=== PATIENT | female | born 1995 | race African-American/Black ===

== ENCOUNTER 2020-10-24 19:18 | Emergency (ER) | payer OTHER ==
[~2020-10-24] VITALS: Ht 162.6 cm; Wt 72.7 kg
[2020-10-24 20:04] VITALS: BP 115/84
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
[2020-10-24] MEDS ORDERED: CYCLOBENZAPRINE 10 MG TABLET. PO ONE (22:00)
[2020-10-24] MEDS ORDERED: NAPROXEN 500 MG TABLET PO ONE (22:00)
[2020-10-24] MEDS ORDERED: CYCL10TA2 PO (22:09)
[2020-10-24] MEDS ORDERED: NAPR-514 PO (22:09)
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
== END 2020-10-24 22:15 | disposition home or self-care (01) ==
LOC: ER 19:18
DX: S16.1XXA Strain of muscle, fascia and tendon at neck level, initial encounter (principal); S00.83XA Contusion of other part of head, initial encounter; R60.0 Localized edema; Z98.890 Other specified postprocedural states; V49.9XXA Car occupant (driver) (passenger) injured in unspecified traffic accident, initial encounter; Y93.89 Activity, other specified; Y92.413 State road as the place of occurrence of the external cause; Y99.8 Other external cause status
CPT/HCPCS: 70450; 72125; 81025; 99285